=== PATIENT | female | born 1995 | race Caucasian/White ===

== ENCOUNTER 2018-09-20 19:00 | Emergency (ER) | payer BC ==
--- NOTE | 2018-09-20 19:14 | EDM.PDOC ---
ED HPI GENERAL MEDICAL PROBLEM - General Chief Complaint: ENT Problem Stated Complaint: SORE THROAT POSSIBLE STREP Time Seen by Provider: 09/20/18 19:14 Source of Information: Reports: Patient - History of Present Illness INITIAL COMMENTS - FREE TEXT/NARRATIVE: Patient is here today for evaluation of acute onset sore throat that started yesterday evening. Patient reports that she has had difficulty swallowing food, she is drinking fluids adequately. Denies fever or chills. Denies any sinus congestion or rhinorrhea. Has had no cough. Denies myalgias. Has had some ill in contacts, the people that she is staying with (her children's grandparents) for just getting over her illness and she is accompanied by a friend marco a with flulike symptoms. Patient has a long-standing history of strep pharyngitis. Was going to get her tonsils removed when she was younger and that she did not have strep for 2 years and this had be put on the back burner. Last episode of strep pharyngitis was approximately 2-3 years ago. Patient most recently moved here about from [place]. She does not have a PCP. On no medications daily. Denies antibiotic allergy. She is a cigarette smoker daily. Throat Pain Score (Numeric/FACES): 5 - Related Data Allergies Allergy/AdvReac Type Severity Reaction Status Date / Time No Known Allergies Allergy Verified 09/20/18 19:14 Home Meds: Home Meds Naproxen Sodium [Aleve] 220 mg PO DAILY 09/20/18 [History] Penicillin V Potassium 500 mg PO BID #20 tablet 09/20/18 [Rx] ED ROS ENT - Review of Systems Review Of Systems: See Below Constitutional: Reports: Decreased Appetite. Denies: Fever, Chills, Weakness, Fatigue HEENT: Reports: Throat Pain. Denies: Ear Discharge, Ear Pain, Rhinitis, Sinus Problem Respiratory: Reports: No Symptoms Cardiovascular: Reports: No Symptoms GI/Abdominal: Reports: Decreased Appetite. Denies: Nausea, Vomiting Musculoskeletal: Reports: No Symptoms Skin: Reports: No Symptoms Neurological: Reports: No Symptoms ED EXAM, ENT - Physical Exam Exam: See Below Exam Limited By: No Limitations General Appearance: Alert, WD/WN, No Apparent Distress Ears: Normal External Exam, Normal Canal, Normal TMs Mouth/Throat: Normal Inspection, Pharyngeal Erythema, Tonsillar Erythema, Tonsillar Exudates Head: Atraumatic, Normocephalic Neck: Normal Inspection, Other (Enlarged lymph nodes bilaterally to anterior cervical chain. Tonsils enlarged bilaterally 3+.) Respiratory/Chest: No Respiratory Distress Cardiovascular: Regular Rate, Rhythm, No Murmur GI/Abdominal: Soft, Non-Tender Neurological: Alert, Oriented Psychiatric: Normal Affect, Normal Mood Skin: Warm, Dry, Intact Course - Vital Signs Last Recorded V/S: Last Vital Signs Temp 97.2 F 09/20/18 19:15 Pulse 91 09/20/18 19:15 Resp 16 09/20/18 19:15 BP 122/65 09/20/18 19:15 Pulse Ox 98 09/20/18 19:15 - Re-Assessments/Exams Free Text/Narrative Re-Assessment/Exam: Rapid strep positive, will treat with Pen-VK 10 days. Recommended probiotic with this. Patient declines lidocaine gargle, will treat pain with ibuprofen and salt water gargle. She will follow-up in the clinicReturn to the emergency room for any new or worsening symptoms. 19:47 Departure - Departure Time of Disposition: 19:43 Disposition: Home, Self-Care 01 Condition: Good Clinical Impression: Strep pharyngitis - Discharge Information Prescriptions: Penicillin V Potassium 500 mg PO BID #20 tablet Instructions: Pharyngitis, [id number] Forms: ED Department Discharge Additional Instructions: You were evaluated in the ED today and diagnosed with strep throat. You will be treated with Penicillin x10 days. I recommend probiotic or yogurt daily to prevent GI side effects with this. Ibuprofen and salt water gargle as needed for pain. Follow-up with myself or a designated PCP in the clinic if symptoms worsen or persist. [phone]
== END 2018-09-20 19:55 | disposition home or self-care (01) ==
LOC: JD.ED 19:00
DX: J02.0 Streptococcal pharyngitis (principal); F17.210 Nicotine dependence, cigarettes, uncomplicated; Z79.899 Other long term (current) drug therapy
CPT/HCPCS: 87430; 99283